=== PATIENT | female | born 1995 | race Caucasian/White ===

== ENCOUNTER 2017-10-07 10:46 | Emergency (ER) | payer MEDICAID ==
[~2017-10-07] VITALS: Ht 157.5 cm; Wt 59.0 kg
[2017-10-07] MEDS ORDERED: ALBUTEROL (0.083%) 2.5MG/3ML NEB HHN STA (14:46)
[2017-10-07 17:18] VITALS: BP 124/67
== END 2017-10-07 17:22 | disposition home or self-care (01) ==
LOC: ER 10:46
DX: R05 Cough (principal); R07.89 Other chest pain; F12.10 Cannabis abuse, uncomplicated; R06.02 Shortness of breath
CPT/HCPCS: 71045; 81025; 93005; 94640; 99284; J7611